=== PATIENT | male | born 1960 | race Caucasian/White ===

== ENCOUNTER 2025-02-12 21:25 | Emergency (ER) | payer MEDICARE, SELFPAY ==
[2025-02-12 21:33] VITALS: BP 144/77
[2025-02-12 21:52] LABS: Hematocrit 35.4 % (39.0-52.0); Hemoglobin 12.2 g/dL (13.0-18.0); Mean Corp Hgb Conc. 34.5 g/dL (33.0-37.0); Mean Corpuscular Volume 83.3 fL (80.0-94.0); Nucleated Red Blood Cells % 0 % (-); Platelet Count 210 10^3/uL (130-400); Red Cell Dist. Width 12.0 % (11.5-14.5)
[2025-02-12 22:15] LABS: Troponin I < 0.012 ng/ml
[2025-02-12 22:21] LABS: ALT (SGPT) 33 U/L (0-50); AST (SGOT) 29 U/L (17-59); Albumin 4.5 g/dl (3.5-5.0); Alkaline Phosphatase 40 U/L (38-126); Blood Urea Nitrogen 18 mg/dl (9-20); Calcium 9.5 mg/dl (8.4-10.2); Carbon Dioxide 25 mmol/L (22-30); Chloride 104 mmol/L (98-107); Glucose 135 mg/dl (70-99); Potassium 4.1 mmol/L (3.5-5.1); Sodium 135 mmol/L (135-145); Total Protein 6.7 g/dl (6.3-8.2); eGFR > 60.00
[2025-02-13 01:23] VITALS: BP 139/71
[2025-02-13 02:44] LABS: Troponin I < 0.012 ng/ml
--- NOTE | 2025-02-13 02:59 | ED.GENMED ---
History of Present Illness
General
Chief Complaint: Chest Pain
Source: patient
Exam Limitations: none
Time Seen by Provider: 02/13/25 02:50
History of Present Illness
History of Present Illness:
See MDM
Past History
Past History
ED Past Medical History: CAD, HTN and Hypercholesterolemia
Social History
Tobacco: Smoker
Personal:
Living: with family
Employment: Employed (excavating contractor, primarily office work.)
Phy Exam
Physical Exam
Physical Exam:
See MDM
Scores
Heart Score for Chest Pain Patients
STEMI patient?: No
History: Slightly or Non-Suspicious
ECG: Normal
Age: >/= 65 years
Risk Factors: >/= 3 Risk Factors or History of CAD
Troponin: </= Normal Limit
Heart Score for Chest Pain Patients: 4
Heart Score Risk: 20.3% MACE over next 6 weeks
Course
Orders/Labs/Results
Orders:
Orders
02/12/25 21:26
Electrocardiogram (*1) Urgent
Reason for Study: Chest Pain
EKG- Treatment ONCE
02/12/25 21:43
Complete Blood Count/With Diff Urgent
Comprehensive Metabolic Panel Urgent
Troponin I Urgent
02/13/25 00:51
ECG [Electrocardiogram (*1)] Urgent
Reason for Study: Chest Pain
EKG- Treatment ONCE
02/13/25 01:58
Troponin I Urgent
Abnormal Lab Results
02/12/25
21:43
RBC 4.25 L 10^6/uL
(4.70-6.10)
Hgb 12.2 L g/dL
(13.0-18.0)
Hct 35.4 L %
(39.0-52.0)
Absolute Monos (auto) 0.7 H 10^3/uL
(0.1-0.6)
Monocytes % 9.9 H %
(1.7-9.3)
Glucose 135 H mg/dl
(70-99)
02/12/25 21:43
02/12/25 21:43
Vital Signs
Initial and Last Documented VS:
Initial Vital Signs
Temp Pulse Resp BP Pulse Ox
97.7 F 76 20 144/77 96
02/12/25 21:33 02/12/25 21:33 02/12/25 21:33 02/12/25 21:33 02/12/25 21:33
Last Documented Vital Signs
Temp Pulse Resp BP Pulse Ox
97.7 F 63 14 139/71 97
02/12/25 21:33 02/13/25 02:00 02/13/25 02:00 02/13/25 01:23 02/13/25 02:00
MDM/Problems Addressed
Differential Diagnosis Includes:
Note:
CHIEF COMPLAINT(S)
Burning sensation in the chest.
HISTORY OF PRESENT ILLNESS
The patient is a 64-year-old male presenting with a burning sensation in the chest for a few days. The patient initially perceived the discomfort as gas and took antacids, which provided limited relief. This sensation has been described as more
constant recently, though it was initially intermittent. The patient notes that the sensation might worsen sometimes after eating. The patient stated, 'Its different. Its just like a kind of like a burn' and 'its starting to get more, moving to more
constant.' The patient indicated that although they have experienced typical reflux symptoms before, this sensation feels different. The patient also mentioned adding a new medication recently for prostate enlargement but did not specify the name.
Currently, the patient takes omeprazole for reflux. Physical exertion and exercise do not exacerbate symptoms. Additional symptoms include soreness to touch in the area, which the patient described as 'sore to touch.'
EXTERNAL RECORDS REVIEWED
1. Reviewed patients blood work, which was unremarkable for cardiac etiology.
2. EKG showed no abnormalities suggestive of ischemic heart disease.
PHYSICAL EXAM
- Abdomen: Tender with palpation in the upper region but not consistently painful.
- Cardiovascular: Heart sounds are regular with no audible murmurs or extra heart sounds upon auscultation.
- Respiratory: Lungs are clear to auscultation bilaterally; no wheezes, rales, or rhonchi detected.
PLAN
1. Recommend trial of famotidine (Pepcid) once a day for one week.
2. Encourage continued use of omeprazole.
3. Patient advised to rest from strenuous exercise for two days to assess improvement.
4. Consider referral to a combination technician for further evaluation if symptoms persist.
DIFFERENTIAL DIAGNOSIS
The Differential Diagnosis includes, in no particular order and is not limited to:
- Gastroesophageal reflux disease (GERD)
- Esophagitis
- Peptic ulcer disease
- Biliary colic
- Musculoskeletal pain
- Anxiety
- Coronary artery disease (less likely)
- Gastritis
- Hiatal hernia
- Non-ulcer dyspepsia
SUMMARY OF ENCOUNTER
The patient was evaluated for a burning sensation in the chest which has been present for a few days, with symptoms suggesting possible gastroesophageal reflux disease or esophagitis. Based on the physical examination and reviewed tests, cardiac
causes were ruled out. The management approach includes a trial of famotidine, continued use of omeprazole, and advising rest from heavy physical activity. Further referral for gastroenterological evaluation may be needed if symptoms do not resolve.
DISPOSITION
Discharge home with follow-up instructions.
ASSESSMENT
Based on the presentation and investigation, the most likely diagnoses include gastroesophageal reflux disease and possibly esophagitis.
MEDICATION RECONCILIATION
- Omeprazole: Continuing
- Famotidine (Pepcid): Prescribed 20 mg once daily for one week as a trial.
MEDICAL DECISION MAKING
Chronic conditions affecting care: Prostate enlargement.
- Data:
Category 1
- Previous laboratory tests reviewed, including blood work results and EKG, were unremarkable.
- Clinical information obtained from patient history and exam.
Category 2
- My independent interpretation of the EKG shows normal sinus rhythm with no apparent ischemic changes.
- Risk:
Prescription medication was prescribed: Famotidine (Pepcid).
DIAGNOSIS
- Gastroesophageal Reflux Disease (GERD) - K21.9
- Esophagitis, unspecified - K20.9
SUMMARY OF ENCOUNTER
The patient presented with bilateral chest discomfort, which worsens upon palpation. The patients suspects the symptoms are related to his workout routine, but the patient disagrees. The patient discussed the possibility of reflux or
esophagitis, with low concern for gallbladder pathology, considering normal liver function tests and a non-tender abdomen. The current management includes taking a proton pump inhibitor (PPI) and H2 radha. A follow-up with a combination technician
(GI) was discussed.
PLAN
Continue current treatment with a PPI and H2 radha. Follow up with gastroenterology for further evaluation if symptoms persist.
INDEPENDENT REVIEW OF LABS AND INTERPRETATION OF TESTS
My independent review of liver function tests (LFTs) indicates normal results, correlating with the low concern for gallbladder pathology.
PATIENT EDUCATION AND COUNSELING
Discussed with the patient the low probability of gallbladder pathology due to normal liver function tests and the option to continue monitoring current symptoms with existing medications. Advised about potential causes of chest discomfort,
including reflux or esophagitis.
FOLLOW-UP INSTRUCTIONS
Follow up with gastroenterology for further evaluation if symptoms persist.
MEDICATION RECONCILIATION
1. Omeprazole (a proton pump inhibitor) - Continuing as part of the current treatment.
2. Famotidine (an H2 radha) - Continuing as prescribed.
MEDICAL DECISION MAKING
Chronic conditions affecting care: Prostate enlargement.
- Differential Diagnosis includes:
- Musculoskeletal pain
- Gastroesophageal reflux disease (GERD)
- Esophagitis
- Peptic ulcer disease
- Biliary colic
- Coronary artery disease (less likely)
- Hiatal hernia
- Non-ulcer dyspepsia
- Gastritis
- Anxiety
- Data:
Category 1
- Non-emergency department records reviewed: External records indicated normal liver function tests.
Category 2
- My independent interpretation of liver function tests shows normal results.
DIAGNOSIS
- Gastroesophageal Reflux Disease (GERD) - K21.9 (suspected based on symptomatology)
- Esophagitis, unspecified - K20.9 (considered due to symptom overlap)
*Pulse Oximetry
SaO2: 97
Oxygen Mode of Delivery: Room air
Patient hypoxic: no
*EKG
Interpreted by ED Provider?: Yes
EKG Intrepretation Date: 02/13/25
Interpretation: normal (Normal sinus rhythm at 67 bpm, normal axis, no ST elevation)
*Critical Care Note
Total Time (30-74mins, 75-104mins- exclusive of procedures): Not Applicable
ED Attending Note
-
Portions of this chart may have been created with voice recognition software.� Occasional wrong word or��sound alike� substitutions may have occurred due to the inherent limitations of voice recognition software.
Discharge Plan
Departure
Patient Disposition: Home (Routine Discharge)
Date of Disposition: 02/13/25
Time of Disposition: 03:00
Patient with high blood pressure during this ER visit?: No
Discharge Problem:
Chest discomfort
Instructions: Chest Pain PCP Follow Up
Prescriptions:
No Action
clopidogrel 75 MG tablet
75 mg PO DAILY
metoprolol succinate 25 MG tablet extended release 24 hr
25 mg PO DAILY
rosuvastatin 10 MG tablet
10 mg PO QPM
aspirin 81 MG tablet,delayed release (DR/EC)
81 mg PO DAILY
Patient Comments:
03/07 took 2 full dose Aspirin at 0730
Referrals:
Candace Hernandez MD [Family Provider, Internal Medicine]
Activity Restrictions/Additional Instructions:
Please return for any worsening symptoms.
You may return at any time if you have further concerns.
Please follow up with your doctor at the first available appointment, preferably this week.
As we discussed, this could be GI related or potentially muscle related. Please take it easy with the chest workouts for the next few days. Please start taking Pepcid daily for the next week at least to see if symptoms improve.
Thank you for choosing [facility].
Interventions
Interventions:
*General Assessment Last Done: 02/12/25 21:33
*Neglect/Abuse Screening Last Done: 02/13/25 02:00
*ED COVID-19 Vaccine History Last Done: 02/12/25 21:33
*ED Influenza Vaccine History Last Done: 02/12/25 21:33
[facility] Fall Risk Assessment Tool Last Done: 02/13/25 02:00
*Risk Screen - Suicide (C-SSRS) Last Done: 02/12/25 21:33
ED- Cardiac Assessment Last Done: 02/13/25 02:00
Discharge Date and Time
Print Language: TUVALUAN
== END 2025-02-13 03:13 | disposition home or self-care (01) ==
LOC: EMR 21:25
PROVIDERS: EMERGENCY PHYSICIAN Student in an Organized Health Care Education/Training Program; FAMILY PHYSICIAN Internal Medicine
DX: R07.89 Other chest pain (principal); E78.00 Pure hypercholesterolemia, unspecified; K21.9 Gastro-esophageal reflux disease without esophagitis; I10 Essential (primary) hypertension; I25.10 Atherosclerotic heart disease of native coronary artery without angina pectoris; F17.200 Nicotine dependence, unspecified, uncomplicated; Z79.899 Other long term (current) drug therapy
CPT/HCPCS: 99284; 80053; 84484; 85025; 93005